=== PATIENT | female | born 1975 | race Caucasian/White ===

== ENCOUNTER 2017-07-19 14:25 | Outpatient (CLI) | payer OTHER | END 2017-07-19 14:26 | disposition home or self-care (01) | LOC: BICMAMMO 14:25 | PROVIDERS: ATTEND Obstetrics & Gynecology | DX: Z12.31 Encounter for screening mammogram for malignant neoplasm of breast (principal) | CPT/HCPCS: 77063; 77067 ==

== ENCOUNTER 2017-07-26 14:12 | Outpatient (CLI) | payer OTHER | END 2017-07-26 14:13 | disposition home or self-care (01) | LOC: BICMAMMO 14:12 | PROVIDERS: ATTEND Obstetrics & Gynecology | DX: N63.20 Unspecified lump in the left breast, unspecified quadrant (principal) | CPT/HCPCS: G0279 ==

== ENCOUNTER → 2017-08-11 | Day surgery (SDC) | payer OTHER ==
--- NOTE | 2017-08-11 09:14 | MMO ---
STEREOTACTIC GUIDED BIOPSY LEFT BREAST MICROCALCIFICATIONS SURGICAL SPECIMEN MAMMOGRAPHY LEFT BREAST DIAGNOSTIC LEFT MAMMOGRAM POST BIOPSY: Date: 08/11/17 HISTORY: Abnormal mammogram. Indeterminate microcalcifications. FINDINGS: After explaining the procedure and answering all questions, the microcalcification cluster in the med ial aspect of the left breast was visualized. Sterile technique, buffered local anesthesia, stereotac tic guidance, and a medial approach were used to carefully advance a 10 gauge vacuum-assisted needle to the level of the microcalcifications. Position was confirmed with stereotactic imaging. Twelve vac uum-assisted specimens were obtained. Localization clip was placed in the biopsy bed. Surgical specimen mammography shows microcalcificatio ns in the tissue. Needle was removed. The patient tolerated the procedure well and was eventually dismissed in good con dition. Postprocedure mammography shows localization clip where the microcalcifications had been removed deep within the medial aspect of the breast. Gas is consistent with recent biopsy. IMPRESSION: Technically successful stereotactic biopsy left breast microcalcifications. Pathology is pending. POS: [facility]
== END ==
LOC: MAMMO 06:51
PROVIDERS: ATTEND Surgery
PROC: 0HBU3ZX Excision of Left Breast, Percutaneous Approach, Diagnostic (ICD-10-PCS; principal; 2017-08-11)
DX: N60.32 Fibrosclerosis of left breast (principal); N60.82 Other benign mammary dysplasias of left breast; F32.9 Major depressive disorder, single episode, unspecified; Z79.2 Long term (current) use of antibiotics; Z79.899 Other long term (current) drug therapy
CPT/HCPCS: 19081; 76098; 88305